=== PATIENT | male | born 1970 | race Caucasian/White ===

== ENCOUNTER 2017-10-10 00:30 | Emergency (ER) | payer SELFPAY ==
[2017-10-10 00:46] VITALS: BP 149/101
[2017-10-10] MEDS ORDERED: CEPHALEXIN 500 MG CAPSULE PO ONE (01:24)
--- NOTE | 2017-10-10 01:26 | ER Document Report ---
ED Hand/Wrist Injury - General Chief Complaint: Finger Injury Stated Complaint: FINGER LACERATION Time Seen by Provider: 10/10/17 01:12 Notes: The patient is a 47-year-old male who presents with a right index finger laceration after he accidentally cut it with a pocket knife 24 hours ago. He wrapped it with tape last night. His tetanus is up-to-date. Denies difficulty bending his finger, heavy bleeding or any other injuries. TRAVEL OUTSIDE OF THE [place] IN LAST 30 DAYS: No - Related Data Allergies/Adverse Reactions: No Known Allergies Allergy (Unverified 10/10/17 00:34) Past Medical History - General Information source: Patient - Social History Smoking Status: Unknown if Ever Smoked Family History: Reviewed & Not Pertinent Review of Systems - Review of Systems Notes: REVIEW OF SYSTEMS: CONSTITUTIONAL: -fevers, -chills HEMATOLOGIC: -easy bruising or bleeding. EXTREMITIES: +right index finger laceration NEUROLOGICAL: -altered mental status or loss of consciousness, -headache, - neurologic symptoms ALL OTHER SYSTEMS REVIEWED AND NEGATIVE. Physical Exam - Vital signs Vitals: Temp Pulse Resp BP Pulse Ox 97.8 F 120 H 20 149/101 H 98 10/10/17 00:44 10/10/17 00:44 10/10/17 00:44 10/10/17 00:44 10/10/17 00:44 - Notes Notes: PHYSICAL EXAMINATION: GENERAL: Well-appearing, well-nourished and in no acute distress. EXTREMITIES: 2 cm linear laceration over palmar surface of right index finger around to below nailbed, no nailbed involvement. Extensor and flexor tendons intact. Normal range of motion, no pitting or edema. No cyanosis. NEUROLOGICAL: Cranial nerves grossly intact. Normal speech, normal gait. Normal sensory and motor exams. Course - Re-evaluation Re-evalutation: Patient with superficial right index finger laceration that was sustained 24 hours ago. The wound was extensively irrigated with soap and water. No extensor or flexor tendon involvement. Wound was closed with Dermabond and Steri-Strips and given strict return precautions. Will send home with Keflex due to the age of the wound. Pt's tachcyardia is from his hyperactivity and anxious demeanor. - Vital Signs Vital signs: Temp Pulse Resp BP Pulse Ox 97.8 F 120 H 20 149/101 H 98 10/10/17 00:44 10/10/17 00:44 10/10/17 00:44 10/10/17 00:44 10/10/17 00:44 Procedures - Laceration/Wound Repair Right Hand 2nd digit Time completed: 01:43 Wound length (cm): 2 Wound's Depth, Shape: Linear Wound explored: Clean Wound Repaired With: Steri-strips, Dermabond Post-procedure wound care: Sterile dressing applied Post-procedure NV exam normal: Yes Complications: No Discharge - Discharge Clinical Impression: Finger laceration Qualifiers: Encounter type: initial encounter Finger: index finger Damage to nail status: unspecified Foreign body presence: without foreign body Laterality: right Qualified Code(s): S61.210A - Laceration without foreign body of right index finger without damage to nail, initial encounter Condition: Stable Disposition: HOME, SELF-CARE Additional Instructions: NON-SUTURED LACERATION: Your laceration did not require suturing. Some lacerations cannot be sutured because of increased infection risk, while others simply don't need stitches because they are shallow or very short. Your injury should be protected while it heals. Usually complete healing takes 10 to 14 days. Keep the dressing clean and dry, and change it every day. If you notice increasing pain, redness, swelling, drainage, or tender lumps in the armpit or groin above the injury, infection may be present. You should call the doctor at once. SOAP CLEANSING: Gently wash the wound daily using a mild soap (like Ivory, Phisoderm, Neutrogena). Use warm water, rubbing gently until all debris, ooze, and crusting have been washed from the wound. Allow to dry briefly (about 10 minutes) after cleaning. Repeat this cleansing at least three times a day for the first two days and then once or twice a day. ANTIBIOTIC OINTMENT PROTECTION: Your wounds are such that dressing them is not practical or optional. After cleansing, you should apply a thin coating of antibiotic ointment ( Bacitracin, not Neosporin) to the wounds at least three times daily. This lessens infection risk, and may decrease the amount of scarring. Use a q-tip or dull butter knife, not your finger, to apply this ointment. Any debris or ooze which builds up in the ointment should be gently rubbed off with a sterile gauze pad. Harder crusting may need to be gently scrubbed off with a clean wash cloth with soap and warm water, perhaps applying a warm, wet wash cloth to the wound for ten minutes first. Development of redness, severe itching, or blistering may mean allergy to the ointment. See the doctor. PROPHYLACTIC ANTIBIOTIC: The antibiotics which have been prescribed are designed to decrease the risk of infection. Only certain types of wounds benefit from this -- the typical cut, scrape, or burn DOES NOT require antibiotics. Of course, infection can still occur despite the use of prophylactic antibiotics. Your wound will heal with less chance of an infectious complication if you take the medication as directed. The most important dose is the FIRST dose, so don't delay filling the prescription! FOLLOW-UP CARE: Please return in 2 days for an infection check and dressing change. If you have been referred to another physician for follow-up care, call that physicians office for an appointment as you were instructed. If you experience a significant change in your laceration, or if you are concerned there may be an infection (swelling, redness, drainage, increasing tenderness, red streaks, tender lumps in the armpit or groin above the laceration, or fever) , return to the Emergency Department immediately re-evaluation. Prescriptions: Cephalexin Monohydrate [Keflex 500 mg Capsule] 500 mg PO BID 7 Days capsule
== END 2017-10-10 02:04 | disposition home or self-care (01) ==
LOC: ER 00:30
PROC: 0HQFXZZ Repair Right Hand Skin, External Approach (ICD-10-PCS; principal; 2017-10-10)
DX: S61.210A Laceration without foreign body of right index finger without damage to nail, initial encounter (principal); W26.0XXA Contact with knife, initial encounter
CPT/HCPCS: 99282

== ENCOUNTER 2018-12-03 05:49 | Observation (INO) | payer OTHER ==
--- NOTE | 2018-12-03 06:42 | ER Document Report ---
Entered by KAZ GILES SCRIBE 12/03/18 0623 Acting as scribe for:ROLANDO VERMA MD ED Neuro Symptoms/Deficit - General Chief Complaint: Numbness Stated Complaint: LEFT SIDED NUMBNESS Mode of Arrival: Medic Information source: Patient, [facility] Records Notes: 48-year-old [facility] who presents to the emergency department today with complaints of left-sided numbness including his left leg, left arm, and the left-side of his face which began just prior to arrival. Madhav jean states he woke up to go to the bathroom at about 0430 and as he stepped out of his bed he fell due to not being able to feel his left leg. Patient states he slept on his right side all night. Patient states that as the [facility] nurse was taking his blood pressure he began to have feeling come back that he describes as a "tingling". Patient states both the numbness and this tingling have subsided and he feels back to normal now. Patient denies any pain. Patient is completely asymptomatic now with a normal physical exam, therefore he is not a TPA candidate. TRAVEL OUTSIDE OF THE [place] IN LAST 30 DAYS: No - Related Data Allergies/Adverse Reactions: No Known Allergies Allergy (Unverified 10/10/17 00:34) Past Medical History - General Information source: Patient - Social History Smoking Status: Current Every Day Smoker - Except since he has been in [facility] Cigarette use (# per day): Yes - 1 ppd Frequency of alcohol use: None Drug Abuse: None Occupation: construction, currently in [facility] Lives with: Other - [facility] Family History: Reviewed & Not Pertinent - Medical History Medical History: Negative Past Surgical History: Reports: Hx Inguinal Hernia, Hx Myringotomy Review of Systems - Review of Systems Constitutional: No symptoms reported EENT: No symptoms reported Cardiovascular: No symptoms reported Respiratory: No symptoms reported Gastrointestinal: No symptoms reported Genitourinary: No symptoms reported Male Genitourinary: No symptoms reported Musculoskeletal: No symptoms reported Skin: No symptoms reported Hematologic/Lymphatic: No symptoms reported Neurological/Psychological: See HPI, Numbness - left, Tingling - left -: Yes All other systems reviewed and negative Physical Exam - Vital signs Vitals: Pulse Resp BP Pulse Ox 68 14 140/94 H 98 12/03/18 06:00 12/03/18 06:00 12/03/18 06:00 12/03/18 06:00 - Notes Notes: Physical Exam: General: Alert, appears well. HEENT: Normocephalic. Atraumatic. PERRL. Extraocular movements intact. Oropharynx clear. No carotid bruits. Neck: Supple. Non-tender. Respiratory: No respiratory distress. Clear and equal breath sounds bilaterally. Cardiovascular: Regular rate and rhythm. Abdominal: Normal Inspection. Non-tender. No distension. Normal Bowel Sounds. Back: No gross abnormalities. Extremities: Moves all four extremities. Upper extremities: Normal inspection. Normal ROM. Lower extremities: Normal inspection. No edema. Normal ROM. Neurological: Normal cognition. AAOx4. Normal speech. Psychological: Normal affect. Normal Mood. Skin: Warm. Dry. Normal color. Course - Vital Signs Vital signs: Temp Pulse Resp BP Pulse Ox 98.4 F 68 13 155/107 H 97 12/03/18 06:12 12/03/18 06:12 12/03/18 07:32 12/03/18 07:01 12/03/18 07:32 - Laboratory Result Diagrams: 12/03/18 06:35 12/03/18 06:35 Laboratory results interpreted by me: 12/03/18 12/03/18 12/03/18 06:35 06:35 07:28 RBC 5.61 H Glucose 126 H Creatine Kinase 39 L Urine Urobilinogen 2.0 H - Diagnostic Test Radiology reviewed: Image reviewed, Reports reviewed - CT scan of the head is unremarkable. Chest x-ray is unremarkable. - EKG Interpretation by Ok EKG shows normal: Sinus rhythm, [place], Intervals, QRS Complexes, ST-T Waves Rate: Normal Rhythm: NSR Voltage: Consistant with LVH - Consults Alex Maloney NP Time consulted: 08:00 Consulted provider: will come to ER Discharge - Discharge Clinical Impression: Transient ischemic attack (TIA) High blood pressure Qualifiers: Hypertension type: unspecified Qualified Code(s): I10 - Essential (primary) hypertension Condition: Stable Disposition: ADMITTED INPATIENT Admitting Provider: Laurie (Hospitalist) Unit Admitted: ADALI Scribe Attestation: 12/03/18 07:06 I personally performed the services described in the documentation, reviewed and edited the documentation which was dictated to the scribe in my presence, and it accurately records my words and actions. I personally performed the services described in the documentation, reviewed and edited the documentation which was dictated to the scribe in my presence, and it accurately records my words and actions.
[2018-12-03 06:47] LABS: ABSOLUTE BASOPHILS # (AUTO) 0.1 10^3/uL (0.0-0.2); ABSOLUTE EOSINOPHILS # (AUTO) 0.3 10^3/uL (0.0-0.6); ABSOLUTE LYMPHOCYTES (AUTO) 2.1 10^3/uL (0.5-4.7); ABSOLUTE MONOCYTES (AUTO) 0.7 10^3/uL (0.1-1.4); ABSOLUTE NEUT (AUTO) 6.6 10^3/uL (1.7-8.2); BASOPHILS % (AUTO) 0.6 % (0-2); EOSINOPHILS % (AUTO) 3.2 % (0-6); HEMATOCRIT 47.3 % (37.9-51.0); HEMOGLOBIN 16.4 g/dL (13.5-17.0); LYMPHOCYTES % (AUTO) 21.3 % (13-45); MEAN CORPUSCULAR HEMOGLOBIN 29.2 pg (27.0-33.4); MEAN CORPUSCULAR HGB CONC 34.6 g/dL (32.0-36.0); MEAN CORPUSCULAR VOLUME 84 fl (80-97); MONOCYTES % (AUTO) 7.2 % (3-13); PLATELET COUNT 245 10^3/uL (150-450); RED BLOOD COUNT 5.61 10^6/uL (4.35-5.55); SEGMENTED NEUTROPHILS % (AUTO) 67.7 % (42-78); TOTAL CELLS COUNTED % (AUTO) 100 %; WHITE BLOOD COUNT 9.7 10^3/uL (4.0-10.5)
[2018-12-03 07:06] LABS: ALBUMIN 4.1 g/dL (3.5-5.0); ALKALINE PHOSPHATASE 73 U/L (38-126); ANION GAP 8 (5-19); ASPARTATE AMINO TRANSFERASE 24 U/L (17-59); BILIRUBIN,DIRECT 0.1 mg/dL (0.0-0.4); BILIRUBIN,TOTAL 0.7 mg/dL (0.2-1.3); BLOOD UREA NITROGEN 14 mg/dL (7-20); CALCIUM 9.3 mg/dL (8.4-10.2); CARBON DIOXIDE 26 mmol/L (22-30); CHLORIDE 103 mmol/L (98-107); CREATINE KINASE 39 U/L (55-170); GLUCOSE 126 mg/dL (75-110); POTASSIUM 4.7 mmol/L (3.6-5.0); TOTAL PROTEIN 6.5 g/dL (6.3-8.2)
--- NOTE | 2018-12-03 07:16 | EKG REPORT ---
SEVERITY:- ABNORMAL ECG - SINUS RHYTHM LEFT VENTRICULAR HYPERTROPHY : Confirmed by: David Cuevas MD 03-Dec-2018 07:16:03
[2018-12-03 07:46] LABS: APPEARANCE,URINE CLEAR; BILIRUBIN,URINE NEGATIVE (NEGATIVE); COLOR,URINE YELLOW; GLUCOSE, URINE NEGATIVE (NEGATIVE); KETONES,URINE NEGATIVE (NEGATIVE); LEUKOCYTE ESTERASE,URINE NEGATIVE (NEGATIVE); NITRITE,URINE NEGATIVE (NEGATIVE); PROTEIN,URINE NEGATIVE (NEGATIVE); URINE SPECIFIC GRAVITY 1.016
--- NOTE | 2018-12-03 07:50 | RADIOLOGY REPORT (SQ) ---
EXAM DESCRIPTION: XR CHEST 1 VIEW COMPLETED DATE/TME: 12/03/2018 06:46 CLINICAL HISTORY: Left-sided numbness and weakness COMPARISON: None. FINDINGS: Single frontal view of the chest. Cardiomediastinal silhouette: Normal size and contour. Lungs: No consolidation, pneumothorax, or pleural effusion. Low lung volumes. Bones: No acute osseous abnormality. Leads overlie the chest. Upper abdomen: No abnormality identified. IMPRESSION: 1. No acute pulmonary process identified.
--- NOTE | 2018-12-03 07:52 | RADIOLOGY REPORT (SQ) ---
EXAM DESCRIPTION: CT HEAD WITHOUT IV CONTRAST COMPLETED DATE/TME: 12/03/2018 06:23 CLINICAL HISTORY: Left-sided numbness COMPARISON: None available TECHNIQUE: Axial CT of the head obtained from the skull apex to the skull base without contrast. FINDINGS: No acute intracranial hemorrhage identified. No mass, mass effect, shift of the midline, abnormal extra-axial fluid collection or CT evidence of acute ischemic change identified. The ventricular system is unremarkable. No acute abnormalities of the supratentorial white matter, basal ganglia, cerebellum, or brainstem. Paranasal sinuses are relatively well aerated. Under pneumatization of the mastoid air cells with mild opacities bilaterally. No destructive osseous lesions. No skull fracture identified. Visualized orbits and globes are unremarkable. DLP: 955.29 mGy-cm IMPRESSION: 1. No acute intracranial abnormality identified. This exam was performed according to our departmental dose-optimization program, which includes automated exposure control, adjustment of the mA and/or kV according to patient size and/or use of iterative reconstruction technique.
[2018-12-03] MEDS ORDERED: HYDROCODONE/ACETAMINOPHEN 5-325 MG TABLET PO PRN (08:25)
[2018-12-03] MEDS ORDERED: DEXTROSE 40% GEL 15 GM TUBE PO PRN ×2 (08:25)
[2018-12-03] MEDS ORDERED: DEXTROSE 50%-WATER 25 GM/50 ML DISP.SYRIN IV PRN ×2 (08:25)
[2018-12-03] MEDS ORDERED: ACETAMINOPHEN 325 MG TABLET PO PRN (08:25)
[2018-12-03] MEDS ORDERED: MAGNESIUM HYDROXIDE SUSP 30 ML UDCUP PO PRN (08:25)
[2018-12-03] MEDS ORDERED: GLUCAGON,HUMAN RECOMB 1 MG INJ SUBCUT PRN (08:25)
[2018-12-03] MEDS ORDERED: ONDANSETRON HCL INJ/PF 4 MG/2 ML SDV IV PRN (08:25)
[2018-12-03] MEDS ORDERED: TEMAZEPAM 15 MG CAPSULE PO PRN (08:25)
--- NOTE | 2018-12-03 08:31 | Progress Note Acknowledgement ---
Progress Note Acknowledgement Progess Note Acknowledgement: I, the undersigned member of the medical staff with appropriate privileges and with supervisory authority over [Alex Maloney], a dependent practice allied health professional, acknowledge that I have reviewed the progress notes entered on this patient, and in my professional judgment believe that the assessment made and/or any care evidenced was appropriate
--- NOTE | 2018-12-03 08:43 | PDOC H&P ---
History of Present Illness Admission Date/PCP: 12/03/18 08:19 No primary care Patient complains of: Left-sided weakness and tingling History of Present Illness: ROXANNA MAYEN is a 48 year old male who was incarcerated secondary to methamphetamine abuse. Patient got up this morning from 4 AM to go to the restroom felt weak in his left side with tingling in his upper extremity. Patient presented to the ER where symptoms were basically resolved. Patient did report later after nurses were taking his blood pressure that he was having some more tingling in his left upper extremity. CT of the brain was negative. At this time the patient to rule out stroke further. Patient had no treatment prior to arrival no true aggravating factors. Patient does smoke 1 pack cigarettes a day. And does abuse methamphetamine Past Medical History Medical History: None Cardiac Medical History: Reports: Hypertension Pulmonary Medical History: Reports: None EENT Medical History: Reports: None Neurological Medical History: Reports: None Renal/ Medical History: Reports: None Malignancy Medical History: Reports: None GI Medical History: Reports: None Musculoskeltal Medical History: Reports: None Skin Medical History: Reports: None Psychiatric Medical History: Reports: Substance Abuse, Tobacco Dependency Traumatic Medical History: Reports: None Hematology: Reports: None Infectious Medical History: Reports: None Past Surgical History Past Surgical History: Reports: None Social History Information Source: Patient Lives with: Other - residential Smoking Status: Current Every Day Smoker - Except since he has been in residential Cigarettes Packs Per Day: 1 Frequency of Alcohol Use: None Hx Recreational Drug Use: Yes Drugs: Other - Methamphetamine Hx Prescription Drug Abuse: No - Advance Directive Resuscitation Status: Full Code Family History Family History: DM, Hypertension Parental Family History Reviewed: Yes Children Family History Reviewed: Yes Sibling(s) Family History Reviewed.: Yes Medication/Allergy Home Medications: Cephalexin Monohydrate [Keflex 500 mg Capsule] 500 mg PO BID 7 Days capsule 10/10/17 Allergies/Adverse Reactions: No Known Allergies Allergy (Unverified 10/10/17 00:34) Review of Systems Constitutional: ABSENT: chills, fever(s), headache(s), weight gain, weight loss Eyes: ABSENT: visual disturbances Ears: ABSENT: hearing changes Cardiovascular: ABSENT: chest pain, dyspnea on exertion, edema, orthropnea, palpitations Respiratory: ABSENT: cough, hemoptysis Gastrointestinal: ABSENT: abdominal pain, constipation, diarrhea, hematemesis, hematochezia, nausea, vomiting Genitourinary: ABSENT: dysuria, hematuria Musculoskeletal: ABSENT: joint swelling Integumentary: ABSENT: rash, wounds Neurological: PRESENT: tingling, weakness. ABSENT: abnormal gait, abnormal speech, confusion, dizziness, focal weakness, syncope Psychiatric: ABSENT: anxiety, depression, homidical ideation, suicidal ideation Endocrine: ABSENT: cold intolerance, heat intolerance, polydipsia, polyuria Hematologic/Lymphatic: ABSENT: easy bleeding, easy bruising Physical Exam Vital Signs: Temp Pulse Resp BP Pulse Ox 98.4 F 68 13 155/107 H 97 12/03/18 06:12 12/03/18 06:12 12/03/18 07:32 12/03/18 07:01 12/03/18 07:32 Intake & Output 12/02/18 12/03/18 12/04/18 06:59 06:59 06:59 Weight 77.111 kg General appearance: PRESENT: no acute distress, well-developed, well-nourished Head exam: PRESENT: atraumatic, normocephalic Eye exam: PRESENT: conjunctiva pink, EOMI, PERRLA. ABSENT: scleral icterus Ear exam: PRESENT: normal external ear exam Mouth exam: PRESENT: moist, tongue midline Neck exam: ABSENT: carotid bruit, JVD, lymphadenopathy, thyromegaly Respiratory exam: PRESENT: clear to auscultation rosa. ABSENT: rales, rhonchi, wheezes Cardiovascular exam: PRESENT: RRR. ABSENT: diastolic murmur, rubs, systolic murmur Pulses: PRESENT: normal dorsalis pedis pul Vascular exam: PRESENT: normal capillary refill GI/Abdominal exam: PRESENT: normal bowel sounds, soft. ABSENT: distended, guarding, mass, organolmegaly, rebound, tenderness Rectal exam: PRESENT: deferred Extremities exam: PRESENT: full ROM. ABSENT: calf tenderness, clubbing, pedal edema Neurological exam: PRESENT: alert, awake, oriented to person, oriented to place, oriented to time, oriented to situation, CN II-XII grossly intact. ABSENT: motor sensory deficit Psychiatric exam: PRESENT: appropriate affect, normal mood. ABSENT: homicidal ideation, suicidal ideation Skin exam: PRESENT: dry, intact, warm. ABSENT: cyanosis, rash Results Laboratory Results: 12/03/18 06:35 12/03/18 06:35 12/03/18 12/03/18 12/03/18 06:35 06:35 07:28 WBC 9.7 RBC 5.61 H Hgb 16.4 Hct 47.3 MCV 84 MCH 29.2 MCHC 34.6 RDW 13.0 Plt Count 245 Seg Neutrophils % 67.7 Sodium 137.2 Potassium 4.7 Chloride 103 Carbon Dioxide 26 Anion Gap 8 BUN 14 Creatinine 0.80 Est GFR ( Amer) > 60 Glucose 126 H Calcium 9.3 Magnesium 2.1 Total Bilirubin 0.7 AST 24 Alkaline Phosphatase 73 Total Protein 6.5 Albumin 4.1 Urine Color YELLOW Urine Appearance CLEAR Urine pH 7.0 Ur Specific Davidson 1.016 Urine Protein NEGATIVE Urine Glucose (UA) NEGATIVE Urine Ketones NEGATIVE Urine Blood NEGATIVE Urine Nitrite NEGATIVE Ur Leukocyte Esterase NEGATIVE Urine WBC (Auto) 0 Urine RBC (Auto) 0 12/03/18 12/03/18 06:35 06:35 Creatine Kinase 39 L Troponin I < 0.012 Impressions: Head CT 12/03/18 06:23 IMPRESSION: 1. No acute intracranial abnormality identified. This exam was performed according to our departmental dose-optimization program, which includes automated exposure control, adjustment of the mA and/or kV according to patient size and/or use of iterative reconstruction technique. Chest X-Ray 12/03/18 06:46 IMPRESSION: 1. No acute pulmonary process identified. Assessment and Plan - Diagnosis (1) Transient ischemic attack (TIA) Is this a current diagnosis for this admission?: Yes Plan: 12/03/2018-symptoms resolved at this time. CT of the brain was negative. Will obtain MRI, echocardiogram and carotid Doppler study. Place patient on aspirin 81 mg p.o. daily, atorvastatin 80 mg p.o. daily, will monitor and treat high blood pressure with lisinopril 20 mg p.o. daily to start. We will continue to educate about tobacco abuse offer nicotine patches as needed. Have patient seen by stroke nurse for further evaluation. (2) High blood pressure Qualifiers: Hypertension type: unspecified Qualified Code(s): I10 - Essential (primary) hypertension Is this a current diagnosis for this admission?: Yes Plan: 12/03/2018-157/107 at this time. Lisinopril 20 mg p.o. daily. Monitor and titrate as needed (3) Hyperglycemia Is this a current diagnosis for this admission?: Yes Plan: 12/03/2018-mild. Resting blood sugar 126. Will obtain A1c treat as appropriate. (4) Tobacco abuse Is this a current diagnosis for this admission?: Yes Plan: 12/03/2018-continue to educate about the importance of tobacco cessation (5) Methamphetamine abuse Is this a current diagnosis for this admission?: Yes Plan: 12/03/2018-continue to educate about the importance of cessation from methamphetamine abuse - Time Time Spent with patient: 25-34 minutes - Inpatient Certification Based on my medical assessment, after consideration of the patient's comorbidities, presenting symptoms, or acuity I expect that the services needed warrant INPATIENT care.: Yes I certify that my determination is in accordance with my understanding of Medicare's requirements for reasonable and necessary INPATIENT services [42 CFR 412.3e].: Yes Medical Necessity: Other - Carotid Doppler, MRI, echocardiogram
--- NOTE | 2018-12-03 08:45 | ADVANCED CARE ---
- Diagnosis (1) Transient ischemic attack (TIA) Diagnosis Current: Yes (2) High blood pressure Diagnosis Current: Yes (3) Hyperglycemia Diagnosis Current: Yes (4) Tobacco abuse Diagnosis Current: Yes (5) Methamphetamine abuse Diagnosis Current: Yes Attendance: Myself and patient Resuscitation Status: Full Code Discussion: Patient does have a discussion about current plan of care. Will place patient observation obtain MRI, echocardiogram and carotid Doppler. Start him on aspirin and atorvastatin. Also treat blood pressure with lisinopril 20 mg p.o. daily. Patient is in agreement with plan of care. Care Planning Goals: 1-aspirin and atorvastatin 2-carotid Doppler, echocardiogram, MRI 3-lisinopril 20 mg p.o. daily 4-tobacco cessation 5-methamphetamine cessation 6-full code Time Spent: Greater than 16 minutes
[2018-12-03] MEDS: ENOXAPARIN SODIUM INJ 40 MG/0.4 ML DISP.SYRIN SUBCUT SCH (10:21)
[2018-12-03] MEDS: LISINOPRIL 10 MG TABLET PO SCH (10:23)
[2018-12-03] MEDS: ASPIRIN 81 MG TABLET, ENT COATED PO SCH (10:23)
--- NOTE | 2018-12-03 12:47 | RADIOLOGY REPORT (SQ) ---
EXAM DESCRIPTION: CAROTID DOPPLER COMPLETED DATE/TIME: 12/03/2018 12:02 pm REASON FOR STUDY: tia COMPARISON: None. TECHNIQUE: Grayscale ultrasound, Doppler velocity and spectra, and color Doppler images acquired of the extra-cranial carotid and vertebral arteries. Images stored on PACS. LIMITATIONS: None. FINDINGS: RIGHT CAROTID CCA Velocities: Within normal limits. ICA Velocities Peak systolic 0.51 m/s. End diastolic 0.19 m/s. Proximal ICA/CCA peak systolic ratio 1.05. Spectra normal. No significant plaque. LEFT CAROTID CCA Velocities: Within normal limits. ICA Velocities Peak systolic 0.88 m/s. End diastolic 0.27 m/s. Proximal ICA/CCA peak systolic ratio 1.59. Spectra normal. No significant plaque. VERTEBRAL ARTERIES: Antegrade flow. Normal waveforms. SUBCLAVIAN ARTERIES: No finding. OTHER: No other significant finding. IMPRESSION: NO HEMODYNAMICALLY SIGNIFICANT STENOSIS. COMMENT: Quality ID #[id number]: Velocity criteria are extrapolated from the diameter data as defined by t he Society of Radiologists in Ultrasound Consensus Conference. Radiology 2003: 229; 340-346. TECHNICAL DOCUMENTATION: JOB ID: [id number] [employer]- All Rights Reserved Reading location - IP/workstation name: [email or web address]
--- NOTE | 2018-12-03 15:00 | RADIOLOGY REPORT (SQ) ---
EXAM DESCRIPTION: MRI HEAD WITHOUT COMPLETED DATE/TIME: 12/03/2018 2:44 pm REASON FOR STUDY: tia COMPARISON: CT brain dated 12/03/2018 TECHNIQUE: Multiplanar imaging includes non-contrasted T1, T2, FLAIR, and diffusion with ADC map seq uences. Images stored on PACS. LIMITATIONS: None. FINDINGS: ANATOMY: No anomalies. Normal vascular flow voids. Pituitary fossa normal. CSF SPACES: Normal in size and contour. No hemorrhage. CEREBRUM: Sulci and gyri normal in size and contour. Normal white matter signal on FLAIR imaging. No evidence of hemorrhage, mass, or extraaxial fluid collection. POSTERIOR FOSSA: No signal alteration. No hemorrhage. No edema, masses or mass effect. Internal bob tory canals, cerebello-pontine angles, mastoids normal. DIFFUSION IMAGING: Negative for acute or sub-acute infarction. ORBITS: No masses. Globes normal. PARANASAL SINUSES: No fluid levels. Mucosa normal. OTHER: No other significant finding. IMPRESSION: NORMAL MRI OF THE BRAIN WITHOUT INTRAVENOUS GADOLINIUM CONTRAST. EVIDENCE OF ACUTE STROKE: NO. TECHNICAL DOCUMENTATION: JOB ID: [id number]- All Rights Reserved Reading location - IP/workstation name: [email or web address]
--- NOTE | 2018-12-03 18:48 | XCELERA REPORT ---
[address] [address] Transthoracic Echocardiogram Report Name: ROXANNA MAYEN Age: 48 yrs Gender: Male : 1970 Patient Status: Inpatient Patient Location: [address] [place] [address] Study Date: 12/03/2018 10:46 AM Height: 69 in Weight: 170 lb BSA: 1.9 m2 Procedure: A two-dimensional transthoracic echocardiogram with color flow and Doppler was performed. The study was technically limited with all images being suboptimal in quality. Reason For Study: TIA History: TIA. Ordering Physician: YUE BANKS Performed By: Poly Blood Interpretation Summary There is no obvious cardiac source of embolus noted on this transthoracic echocardiogram. Follow-up with a SILVERIO is suggested if cardiac source is still suspected. The left ventricle is normal in size. There is normal left ventricular wall thickness. LV EF is 65% The left ventricular ejection fraction is within normal limits. Doppler measurements suggest normal left ventricular diastolic function : By tissue doppler The left ventricular wall motion is normal. There is no thrombus. Cannot assess ASD ,VSD , or PFO. The right ventricle is normal in size and function. The right atrium is normal. The left atrial size is normal. There is no evidence of mitral valve prolapse. There is no vegetation seen on the mitral valve. There is no mitral valve stenosis. There is a trace amount of mitral regurgitation There is no aortic valvular vegetation. There is no aortic valve stenosis There is no LVOT obstruction. No aortic regurgitation is present. There is no tricuspid stenosis. There is a trace amount of tricuspid regurgitation Unable to Calculate RVSP due to insufficient TR jet. There is no pulmonic valvular stenosis. There is a trace amount of pulmonic regurgitation The inferior vena cava was not well visualized The aortic root is mildly dilated There is no obvious cardiac source of embolus noted on this transthoracic echocardiogram. Follow-up with a SILVERIO is suggested if cardiac source is still suspected MMode/2D Measurements & Calculations RVDd: 3.2 cm LVIDd: 4.4 cm FS: 35.3 % Ao root diam: 3.9 cm IVSd: 1.1 cm LVIDs: 2.9 cm EDV(Teich): 88.7 ml Ao root area: 11.6 cm2 LVPWd: 1.1 cm ESV(Teich): 31.2 ml EF(Teich): 64.8 % Doppler Measurements & Calculations MV E max ansley: MV dec slope: Ao V2 max: LV V1 max P.1 cm/sec 332.9 cm/sec2 119.5 cm/sec 2.7 mmHg MV A max ansley: MV dec time: 0.19 secAo max PG: LV V1 max: 64.1 cm/sec 5.7 mmHg 82.7 cm/sec MV E/A: 1.0 PA V2 max: 86.9 cm/sec PA max P.0 mmHg Left Ventricle The left ventricle is normal in size. There is normal left ventricular wall thickness. LV EF is 65%. The left ventricular ejection fraction is within normal limits. Doppler measurements suggest normal left ventricular diastolic function. : By tissue doppler. The left ventricular wall motion is normal. There is no thrombus. Cannot assess ASD ,VSD , or PFO. Right Ventricle The right ventricle is normal in size and function. The right ventricle is not well visualized secondary to technical limitations. Atria The right atrium is normal. The left atrial size is normal. Mitral Valve There is no evidence of mitral valve prolapse. There is no vegetation seen on the mitral valve. There is no mitral valve stenosis. There is a trace amount of mitral regurgitation. Aortic Valve There is no aortic valvular vegetation. There is no aortic valve stenosis. There is no LVOT obstruction. No aortic regurgitation is present. Tricuspid Valve There is no tricuspid stenosis. There is a trace amount of tricuspid regurgitation. Unable to Calculate RVSP due to insufficient TR jet. Pulmonic Valve There is no pulmonic valvular stenosis. There is a trace amount of pulmonic regurgitation. Great Vessels The aortic root is mildly dilated. The inferior vena cava was not well visualized. : YUE BANKS > Lorin Langford
[2018-12-03] MEDS ORDERED: ATORVASTATIN CALCIUM 80 MG TABLET PO SCH (22:00)
[2018-12-04 05:45] LABS: ABSOLUTE BASOPHILS # (AUTO) 0.1 10^3/uL (0.0-0.2); ABSOLUTE EOSINOPHILS # (AUTO) 0.4 10^3/uL (0.0-0.6); ABSOLUTE LYMPHOCYTES (AUTO) 3.3 10^3/uL (0.5-4.7); ABSOLUTE MONOCYTES (AUTO) 0.8 10^3/uL (0.1-1.4); ABSOLUTE NEUT (AUTO) 3.6 10^3/uL (1.7-8.2); BASOPHILS % (AUTO) 1.1 % (0-2); EOSINOPHILS % (AUTO) 5.3 % (0-6); HEMATOCRIT 47.9 % (37.9-51.0); HEMOGLOBIN 16.3 g/dL (13.5-17.0); LYMPHOCYTES % (AUTO) 40.5 % (13-45); MEAN CORPUSCULAR VOLUME 85 fl (80-97); MONOCYTES % (AUTO) 9.5 % (3-13); PLATELET COUNT 251 10^3/uL (150-450); RED BLOOD COUNT 5.62 10^6/uL (4.35-5.55); RED CELL DISTRIBUTION WIDTH 12.7 % (11.5-14.0); SEGMENTED NEUTROPHILS % (AUTO) 43.6 % (42-78); TOTAL CELLS COUNTED % (AUTO) 100 %; WHITE BLOOD COUNT 8.2 10^3/uL (4.0-10.5)
[2018-12-04 06:17] LABS: ANION GAP 8 (5-19); BLOOD UREA NITROGEN 15 mg/dL (7-20); CALCIUM 8.8 mg/dL (8.4-10.2); CARBON DIOXIDE 25 mmol/L (22-30); CHLORIDE 105 mmol/L (98-107); GLUCOSE 129 mg/dL (75-110); POTASSIUM 4.2 mmol/L (3.6-5.0)
[2018-12-04 08:03] VITALS: BP 118/79
[2018-12-04] MEDS: LISINOPRIL 10 MG TABLET PO SCH (09:05)
[2018-12-04] MEDS: ASPIRIN 81 MG TABLET, ENT COATED PO SCH (09:06)
[2018-12-04] MEDS: ENOXAPARIN SODIUM INJ 40 MG/0.4 ML DISP.SYRIN SUBCUT SCH (09:06)
--- NOTE | 2018-12-04 11:11 | PDOC DISCHARGE SUMMARY ---
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 Patient got up this morning from 4 AM to go to the restroom felt weak in his left side with tingling in his upper extremity. Patient presented to the ER where symptoms were basically resolved. Patient did report later after nurses were taking his blood pressure that he was having some more tingling in his left upper extremity. CT of the brain was negative. At this time the patient to rule out stroke further. Patient had no treatment prior to arrival no true aggravating factors. Patient does smoke 1 pack cigarettes a day. And does abuse methamphetamine Hospital Course Hospital Course: This is a 48 years old male inmate brought from half-way for left-sided tingling sensation. Of note patient is a known case of hypertension but not on any medication. His CT scan and MRI of the brain are negative for acute stroke. His blood sugars are running above 120 and his hemoglobin A1c is 7.8. He has never been diagnosed with diabetes mellitus. This morning I seen patient resting in bed comfortably. He is not in pain or distress. He is awake alert oriented. He does not have any neurologic deficit. Patient is stable enough to go home. I will send him with lisinopril, hydrochlorothiazide, aspirin and metformin for newly diagnosed diabetes mellitus. Physical Exam Vital Signs: Temp Pulse Resp BP Pulse Ox 97.6 F 86 16 118/79 99 12/04/18 07:55 12/04/18 08:00 12/04/18 08:00 12/04/18 08:00 12/04/18 08:00 Intake & Output 12/03/18 12/04/18 12/05/18 06:59 06:59 06:59 Intake Total 1052 Balance 1052 Weight 77.111 kg 90.2 kg General appearance: PRESENT: no acute distress Head exam: PRESENT: atraumatic Eye exam: PRESENT: conjunctiva pink Neck exam: ABSENT: carotid bruit, JVD, lymphadenopathy, thyromegaly Respiratory exam: PRESENT: clear to auscultation rosa. ABSENT: rales, rhonchi, wheezes Cardiovascular exam: PRESENT: RRR. ABSENT: diastolic murmur, rubs, systolic murmur Neurological exam: PRESENT: alert, awake, oriented to person, oriented to place, oriented to time, oriented to situation Results Laboratory Results: 12/04/18 05:07 12/04/18 05:07 12/04/18 12/04/18 05:07 05:07 WBC 8.2 RBC 5.62 H Hgb 16.3 Hct 47.9 MCV 85 MCH 29.0 MCHC 34.0 RDW 12.7 Plt Count 251 Seg Neutrophils % 43.6 Sodium 137.6 Potassium 4.2 Chloride 105 Carbon Dioxide 25 Anion Gap 8 BUN 15 Creatinine 0.85 Est GFR ( Amer) > 60 Glucose 129 H Calcium 8.8 12/03/18 12/03/18 06:35 06:35 Creatine Kinase 39 L Troponin I < 0.012 Impressions: Head MRI 12/03/18 00:00 IMPRESSION: NORMAL MRI OF THE BRAIN WITHOUT INTRAVENOUS GADOLINIUM CONTRAST. EVIDENCE OF ACUTE STROKE: NO. Head CT 12/03/18 06:23 IMPRESSION: 1. No acute intracranial abnormality identified. This exam was performed according to our departmental dose-optimization program, which includes automated exposure control, adjustment of the mA and/or kV according to patient size and/or use of iterative reconstruction technique. Chest X-Ray 12/03/18 06:46 IMPRESSION: 1. No acute pulmonary process identified. Carotid Doppler Study 12/03/18 08:27 IMPRESSION: NO HEMODYNAMICALLY SIGNIFICANT STENOSIS. Qualifiers - * PATIENT BEING DISCHARGED WITH ANY OF THE FOLLOWING DIAGNOSIS: No Acute Heart Failure - Is this a Heart Failure Patient?: No LVEF < 40%?: No- if no continue to question #3 3. Anticoagulant therapy for permanect/persistent/paraoxysmal Afib or Aflutter: N/A
== END 2018-12-04 12:51 ==
LOC: ER 05:49 → EH 08:19 → INTOOBSV 08:19 → 3S 11:39
PROVIDERS: ADMIT Internal Medicine; ATTEND Internal Medicine
DX: R53.1 Weakness (principal); R20.2 Paresthesia of skin; F15.10 Other stimulant abuse, uncomplicated; F17.210 Nicotine dependence, cigarettes, uncomplicated; I10 Essential (primary) hypertension; E11.65 Type 2 diabetes mellitus with hyperglycemia; R20.0 Anesthesia of skin; Z82.49 Family history of ischemic heart disease and other diseases of the circulatory system; Z83.3 Family history of diabetes mellitus
CPT/HCPCS: 93005; 99285; 36415 ×2; 82550; 83735; 85025 ×2; 80048; 80053; 81001; 84484; 83036; 93306; 93880; 70551; 71045; 70450; 93010; G0378 ×3; J1650 ×2; J3490